=== PATIENT | male | born 1970 | race Caucasian/White ===

== ENCOUNTER 2019-06-29 18:43 | Emergency (ER) | payer MEDICAID ==
[~2019-06-29] VITALS: Ht 182.9 cm; Wt 86.0 kg
[2019-06-29] MEDS ORDERED: SODIUM CHLORIDE 0.9% 1,000 ML IV ONE (19:06)
[2019-06-29] MEDS ORDERED: MORPHINE SULFATE 4 MG/ML CPJ (NOT FOR IM USE) IV STA (19:06)
[2019-06-29] MEDS ORDERED: ONDANSETRON HCL 4MG/2ML INJ IV STA (19:06)
[2019-06-29] MEDS ORDERED: KETOROLAC 30MG/ML VIAL IV STA (19:06)
[2019-06-29] MEDS ORDERED: FAMOTIDINE 20MG/2ML VIAL IV ONE (19:15)
[2019-06-29 20:36] LABS: BASOPHILS % 0.3 % (0.0-2.0); HEMATOCRIT. 43.4 % (42.0-52.0); HEMOGLOBIN. 14.6 g/dL (14.0-18.0); LYMPHOCYTES % 17.2 % (20.0-50.0); MEAN CORPUSCULAR VOLUME 91.9 fL (80.0-94.0); MONOCYTES % 9.3 % (2.0-8.0); NEUTROPHILS % 72.2 % (40.0-76.0); PLATELET 269 x1000/uL (130-400); RED BLOOD CELL COUNT 4.72 mill/uL (4.7-6.1); RED CELL DISTRIBUTION WIDTH 13.5 % (11.6-14.6)
[2019-06-29 20:42] LABS: PARTIAL THROMBOPLASTIN TIME 25.6 sec (23.4-31.0); PROTHROMBIN TIME 10.2 sec (9.6-11.0)
[2019-06-29 21:00] LABS: CHLORIDE 101 mEq/L (98-107)
[2019-06-29] MEDS ORDERED: MAGNESIUM/ALUMINUM HYDROXIDE/SIMETHICONE 30ML UDC PO ONE (21:00)
[2019-06-29 22:23] LABS: ETHANOL BLOOD < 10 mg/dL
[2019-06-29 23:46] VITALS: BP 115/78
== END 2019-06-29 23:51 | disposition home or self-care (01) ==
LOC: ER 19:00
DX: K29.70 Gastritis, unspecified, without bleeding (principal); F17.210 Nicotine dependence, cigarettes, uncomplicated
CPT/HCPCS: 36415; 71045; 74176; 80053; 80320; 83690; 83880; 84484; 85025; 85610; 85730; 93005; 96361; 96374; 96375; 99284; J1885; J2270; J2405; J3490; J7030; G0480

== ENCOUNTER 2019-10-19 22:02 | Emergency (ER) | payer MEDICAID ==
[~2019-10-19] VITALS: Ht 182.9 cm; Wt 87.0 kg
[2019-10-19 22:16] VITALS: BP 114/71
== END 2019-10-19 23:53 | disposition home or self-care (01) ==
LOC: ER 22:02
DX: L71.9 Rosacea, unspecified (principal)
CPT/HCPCS: 99281; 99283

== ENCOUNTER 2020-01-05 00:33 | Emergency (ER) | payer MEDICAID ==
[~2020-01-05] VITALS: Ht 182.9 cm; Wt 84.6 kg
[2020-01-05] MEDS ORDERED: KETOROLAC 30MG/ML VIAL IV STA (01:39)
[2020-01-05 01:54] LABS: HEMATOCRIT. 41.2 % (42.0-52.0); HEMOGLOBIN. 14.4 g/dL (14.0-18.0); MEAN CORPUSCULAR HEMOGLOBIN 31.3 pg (28.0-32.0); MEAN CORPUSCULAR VOLUME 89.6 fL (80.0-94.0); MEAN PLATELET VOLUME 7.5 fl (7.4-10.4); PLATELET 233 x1000/uL (130-400); RED CELL DISTRIBUTION WIDTH 15.2 % (11.6-14.6)
[2020-01-05 01:55] LABS: CLARITY URINE CLEAR (CLEAR); COLOR URINE DARK YELLOW (YELLOW); KETONES URINE TRACE (NEGATIVE); LEUKOCYTE ESTERASE URINE TRACE (NEGATIVE); NITRITE URINE NEGATIVE (NEGATIVE); OCCULT BLOOD URINE NEGATIVE (NEGATIVE); PH URINE 8.5 (4.5-8.0); PROTEIN URINE TRACE (NEGATIVE); SPECIFIC GRAVITY URINE 1.028 (1.005-1.030)
[2020-01-05 02:01] LABS: CHLORIDE 92 mEq/L (98-107)
[2020-01-05 02:05] LABS: ETHANOL BLOOD < 10 mg/dL
[2020-01-05 02:07] LABS: OPIATES URINE SCREEN PRESUMTIVE POSITIVE (NEGATIVE); PHENCYCLIDINE URINE SCREEN NEGATIVE (NEGATIVE)
[2020-01-05 02:08] LABS: *AMPHETAMINES SCREEN URINE PRESUMTIVE POSITIVE (NEGATIVE); *BARBITURATES SCREEN URINE NEGATIVE (NEGATIVE); *BENZODIAZEPINES SCREEN URINE NEGATIVE (NEGATIVE); *COCAINE SCREEN URINE NEGATIVE (NEGATIVE); CANNABINOID URINE SCREEN NEGATIVE (NEGATIVE); METHADONE URINE SCREEN NEGATIVE (NEGATIVE)
[2020-01-05 03:00] VITALS: BP 134/75
[2020-01-05 03:24] LABS: PLATELET ESTIMATE NORMAL
== END 2020-01-05 03:44 | disposition home or self-care (01) ==
LOC: ER 00:33
DX: R10.9 Unspecified abdominal pain (principal); F19.10 Other psychoactive substance abuse, uncomplicated; F11.10 Opioid abuse, uncomplicated; F15.10 Other stimulant abuse, uncomplicated
CPT/HCPCS: 36415; 74176; 80053; 80305; 80320; 81003; 83690; 85025; 96374; 99285; J1885; G0480

== ENCOUNTER 2020-12-21 20:45 | Emergency (ER) | payer MEDICAID ==
[~2020-12-21] VITALS: Ht 182.9 cm; Wt 87.0 kg
[2020-12-21 22:18] LABS: BASOPHILS % 0.2 % (0.0-2.0); EOSINOPHILS % 1.7 % (0.0-5.0); HEMATOCRIT. 41.7 % (42.0-52.0); HEMOGLOBIN. 14.1 g/dL (14.0-18.0); LYMPHOCYTES % 22.4 % (20.0-50.0); MEAN CORPUSCULAR HEMOGLOBIN 30.1 pg (28.0-32.0); MEAN CORPUSCULAR VOLUME 88.7 fL (80.0-94.0); MEAN PLATELET VOLUME 7.3 fl (7.4-10.4); MONOCYTES % 10.3 % (2.0-8.0); NEUTROPHILS % 65.4 % (40.0-76.0); PLATELET 256 x1000/uL (130-400)
[2020-12-21 22:26] LABS: CHLORIDE 98 mEq/L (98-107)
[2020-12-21 22:28] LABS: PROTHROMBIN TIME 10.9 sec (9.6-11.0)
[2020-12-21 22:54] LABS: CLARITY URINE CLEAR (CLEAR); COLOR URINE DARK YELLOW (YELLOW); KETONES URINE NEGATIVE (NEGATIVE); LEUKOCYTE ESTERASE URINE NEGATIVE (NEGATIVE); NITRITE URINE NEGATIVE (NEGATIVE); OCCULT BLOOD URINE NEGATIVE (NEGATIVE); PH URINE 6.5 (4.5-8.0); PROTEIN URINE NEGATIVE (NEGATIVE); SPECIFIC GRAVITY URINE 1.022 (1.005-1.030)
[2020-12-21] MEDS ORDERED: ONDANSETRON 4MG ODT PO STA (23:10)
[2020-12-21] MEDS ORDERED: MAGNESIUM/ALUMINUM HYDROXIDE/SIMETHICONE 30ML UDC PO STA (23:10)
[2020-12-21] MEDS ORDERED: HYDROCODONE/ACETAMINOPHEN 5/325MG TABLET PO STA (23:10)
[2020-12-22] MEDS ORDERED: IBUP-2028 MT (00:44)
[2020-12-22] MEDS ORDERED: FAMO-135 MT (00:44)
[2020-12-22 00:59] VITALS: BP 144/81
== END 2020-12-22 01:00 | disposition home or self-care (01) ==
LOC: ER 20:45
DX: K80.20 Calculus of gallbladder without cholecystitis without obstruction (principal); F15.10 Other stimulant abuse, uncomplicated; F11.129 Opioid abuse with intoxication, unspecified
CPT/HCPCS: 36415; 74176; 80053; 81003; 83690; 85025; 85610; 93005; 99285; Q0162